=== PATIENT | female | born 1960 | race Caucasian/White ===

== ENCOUNTER 2018-02-04 14:25 | Day surgery (SDC) | payer MEDICAID ==
[~2018-02-04] VITALS: Ht 156.2 cm; Wt 80.5 kg
[2018-02-04 14:35] VITALS: BP 157/99
[2018-02-04] MEDS ORDERED: MIDAZolam 5mg/5ml vial ONE (14:58)
[2018-02-04] MEDS ORDERED: fentaNYL/PF 50MCG/1 ML 2ML syringe ONE (14:58)
[2018-02-04] MEDS ORDERED: LISI-600 PO (15:06)
[2018-02-04] MEDS ORDERED: ATOR40TA72 (15:07)
[2018-02-04] MEDS ORDERED: IBUP-1986 PO (15:09)
[2018-02-04] MEDS ORDERED: ALBU18HF2 INH (15:09)
[2018-02-04 15:37] VITALS: BP 108/28
[2018-02-04 15:47] VITALS: BP 126/92
[2018-02-04 15:57] VITALS: BP 147/103
[2018-02-04 16:07] VITALS: BP 143/71
== END 2018-02-04 16:10 | disposition home or self-care (01) ==
LOC: GI LAB 14:25
PROVIDERS: ATTEND Internal Medicine Gastroenterology
DX: Z12.11 Encounter for screening for malignant neoplasm of colon (principal); D12.8 Benign neoplasm of rectum; K57.30 Diverticulosis of large intestine without perforation or abscess without bleeding; K64.8 Other hemorrhoids; F17.210 Nicotine dependence, cigarettes, uncomplicated; J45.998 Other asthma; E66.9 Obesity, unspecified; I10 Essential (primary) hypertension; Z68.33 Body mass index [BMI] 33.0-33.9, adult; Z86.69 Personal history of other diseases of the nervous system and sense organs; Z79.1 Long term (current) use of non-steroidal anti-inflammatories (NSAID); Z79.899 Other long term (current) drug therapy; Z98.890 Other specified postprocedural states
CPT/HCPCS: 45380; 45385; 99152; 99153; J2250; J3010; J7030; A4620

== ENCOUNTER 2023-01-27 07:38 | Emergency (ER) | payer MEDICAID ==
[~2023-01-27] VITALS: Ht 154.9 cm; Wt 56.0 kg
[~2023-01-27 07:38] MED LIST: ALBU18HF2 INH; ATOR40TA72; IBUP-1986 PO; LISI20TA28 PO
[2023-01-27 07:40] VITALS: BP 151/80; PULSE 77; RESP 18; TEMP 97.9; O2SAT 98
[2023-01-27] MEDS ORDERED: BUPIVAcaine 0.25% w/Epi /PF 30ml vial SQ ONE (08:05)
[2023-01-27] MEDS ORDERED: BUPIVAcaine HCl 0.25%/EPInephrine 1:200,000 inj. 10 ML VIAL SQ ONE (08:40)
[2023-01-27] MEDS ORDERED: NAPR-56 PO ×2 (09:56→09:58)
[2023-01-27] MEDS ORDERED: AMOX-117 PO ×2 (09:56→09:58)
== END 2023-01-27 10:17 | disposition home or self-care (01) ==
LOC: ER 07:38
DX: K02.9 Dental caries, unspecified (principal); E78.00 Pure hypercholesterolemia, unspecified; I10 Essential (primary) hypertension; J45.909 Unspecified asthma, uncomplicated; F17.200 Nicotine dependence, unspecified, uncomplicated
CPT/HCPCS: 99283

== ENCOUNTER 2023-03-26 12:32 | Day surgery (SDC) | payer MEDICAID ==
[~2023-03-26] VITALS: Ht 154.9 cm; Wt 55.9 kg
[~2023-03-26 12:32] MED LIST changes: +AMOX-117 PO; +NAPR-56 PO
[2023-03-26] MEDS ORDERED: FAMO40TA58 PO (12:57)
[2023-03-26] MEDS ORDERED: LORA10TA7 PO (12:57)
[2023-03-26 13:00] VITALS: BP 132/54; PULSE 84; RESP 18
[2023-03-26] MEDS ORDERED: MIDAZolam 1 MG/ML 5ML VIAL ONE (14:16)
[2023-03-26] MEDS ORDERED: fentaNYL/PF 50MCG/1 ML 2ML syringe ONE (14:16)
[2023-03-26 14:42] VITALS: BP 123/68; PULSE 69; RESP 13; O2SAT 99
[2023-03-26 14:47] VITALS: BP 126/84; PULSE 83; RESP 16; O2SAT 97
[2023-03-26 14:57] VITALS: BP 135/74; PULSE 81; RESP 17; O2SAT 99
[2023-03-26 15:07] VITALS: BP 137/86; PULSE 75; RESP 19; O2SAT 99
== END 2023-03-26 15:20 | disposition home or self-care (01) ==
LOC: GI LAB 12:32
PROVIDERS: ATTEND Internal Medicine Gastroenterology
DX: Z12.11 Encounter for screening for malignant neoplasm of colon (principal); K63.5 Polyp of colon; K57.30 Diverticulosis of large intestine without perforation or abscess without bleeding; K64.8 Other hemorrhoids; I10 Essential (primary) hypertension; F17.290 Nicotine dependence, other tobacco product, uncomplicated; Z79.899 Other long term (current) drug therapy
CPT/HCPCS: 45380; 45385; 99152; 99153; C1889; J2250; J3010; J7030; Z7512; A4620

== ENCOUNTER 2023-08-30 09:52 | Emergency (ER) | payer MEDICAID ==
[~2023-08-30] VITALS: Ht 154.9 cm; Wt 55.9 kg
[~2023-08-30 09:52] MED LIST changes: -AMOX-117 PO; +FAMO40TA58 PO; -IBUP-1986 PO; +LORA10TA7 PO; -NAPR-56 PO
[2023-08-30 09:57] VITALS: BP 137/83; PULSE 80; O2SAT 99
[2023-08-30] MEDS ORDERED: NAPR500T6 PO (10:53)
[2023-08-30] MEDS ORDERED: CHLO473M2 PO (10:53)
[2023-08-30] MEDS ORDERED: AMOX500C2 PO (10:53)
[2023-08-30 11:01] VITALS: RESP 17; TEMP 98.9
== END 2023-08-30 11:07 | disposition home or self-care (01) ==
LOC: ER 09:53
DX: K08.89 Other specified disorders of teeth and supporting structures (principal); I10 Essential (primary) hypertension; E78.00 Pure hypercholesterolemia, unspecified; J45.909 Unspecified asthma, uncomplicated; Z79.899 Other long term (current) drug therapy; Z79.2 Long term (current) use of antibiotics; Z79.1 Long term (current) use of non-steroidal anti-inflammatories (NSAID)
CPT/HCPCS: 99283

== ENCOUNTER 2024-04-26 09:38 | Emergency (ER) | payer MEDICAID ==
[~2024-04-26] VITALS: Ht 154.9 cm; Wt 56.8 kg
[~2024-04-26 09:38] MED LIST changes: +ACET-1025 PO; +AMOX-117 PO; +CHLO473M2 PO; +IBUP-862 PO; +NAPR-1480 PO
[2024-04-26 09:41] VITALS: BP 157/83; PULSE 90; RESP 16; TEMP 98.2; O2SAT 97
[2024-04-26] MEDS ORDERED: AMOX-117 PO (10:01)
[2024-04-26] MEDS: LIDOcaine 2% Viscous 15ml cup MM STA (10:14)
== END 2024-04-26 12:04 | disposition home or self-care (01) ==
LOC: ER 09:39
DX: K04.7 Periapical abscess without sinus (principal); E78.00 Pure hypercholesterolemia, unspecified; I10 Essential (primary) hypertension; J45.909 Unspecified asthma, uncomplicated
CPT/HCPCS: 41800; 99283; 99284